=== PATIENT | male | born 1970 | race Caucasian/White ===

== ENCOUNTER 2024-03-10 21:30 | Inpatient (IN) | payer MEDICAID, SELFPAY ==
[2024-03-10] VITALS (10 sets, daily range): BP systolic 76–151; BP diastolic 54–100; PULSE 53–88; RESP 18–25; TEMP 34.4; O2SAT 97–100; BMI 25.0
--- NOTE | 2024-03-10 21:39 | XR_ITS ---
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
[2024-03-10] MEDS: ROCURONIUM INJ 10 MG/ML VIAL 10 ML 50 MG IVP (21:41)
[2024-03-10] MEDS: ETOMIDATE INJ 2 MG/ML VIAL 10 ML 20 MG IVP (21:41)
--- NOTE | 2024-03-10 21:46 | PD.EDAMS ---
Altered Mental Status RME/HPI General Chief Complaint: Altered Mental Status Stated Complaint: AMS Time Seen by Provider: 03/10/24 21:46 Arrival date/time: 03/10/24 21:30 RME / HPI RME / HPI narrative: Dr. Love?s Main ED Evaluation: 53yo male NABILA presents to the ED for a chief complaint of altered mental status. Patient was seen by me immediately upon arrival. Patient was intubated at 2141. Per EMS, patient was found down by PD surrounded by bottles of alcohol. They are not sure if he fell, but patient was noted to have trauma to his face. Blood sugar here in the ED is 155. Full ROS is unobtainable due to the patient's AMS. Related Data Home Medications ?Medication ?Instructions ?Recorded ?Confirmed Unobtainable 03/10/24 03/10/24 Allergies Allergy/AdvReac Type Severity Reaction Status Date / Time No Known Allergies Allergy Verified 03/10/24 22:20 Review of Systems Review of Systems ROS Unobtainable: unobtainable due to mental status ED Exam Narrative Physical exam: GENERAL APPEARANCE: obtunded, does not respond to painful stimuli VITALS: All vitals were reviewed and the pulse ox is 100% via ambu-bag, which is abnormal according to my interpretation. HEENT: Normocephalic, small abrasion to the right forehead, ecchymosis to the right periorbital area, less than 1 cm laceration to the left lateral eyebrow/eyelid area; pupils are 5 mm equal and reactive bilaterally, but are sluggish; proptosis bilaterally; mucous membranes pink, moist NECK: Supple LUNGS: CTABL; no wheezes, no rales, no rhonchi HEART: Regular rate, regular rhythm; normal S1, S2; no murmurs ABDOMEN: non distended; normal BS; soft, no tenderness, no guarding, no rebound; no masses, no organomegaly, no hernia BACK: no CVA tenderness : hypospadias EXTREMITIES: atraumatic; no edema NEUROLOGIC: obtunded, unresponsive SKIN: warm, dry, normal color; no rashes Course Course Course Narrative: C-Collar placed to r/o cervical injury. Intubation warranted due to the patient not protecting his airway. 2140: Rocuronium 20mg given. Etomidate 20mg given. 2140: Patient intubated. See procedure note. CXR is ordered to r/o aspiration pneumonia and for post intubation. CT cervical spine is negative for any acute findings. C-Collar removed. Quality Measures none Orders Category Date Time Status CT Screening NOW Care 03/10/24 21:48 Active EKG (ED ONLY) *Do not use* NOW Care 03/10/24 21:47 Completed Florentino [Urinary Catheter] QS Care 03/10/24 21:36 Active Insert NG / OG tube NOW Care 03/10/24 21:37 Active Intubation NOW Care 03/10/24 21:[address] cervical spine wo con Stat Exams 03/10/24 21:[address] chest abdomen pelvis w Stat Exams 03/10/24 21:[address] head/brain wo con Stat Exams 03/10/24 21:47 Completed EKG (ED Only) Stat Exams 03/10/24 21:47 Draft XR chest 1V post procedure Stat Exams 03/10/24 21:39 Completed ABG [Arterial Blood Gas] Stat Lab 03/10/24 23:26 Completed Acetaminophen Stat Lab 03/10/24 21:45 Completed Alcohol, Blood Medical Stat Lab 03/10/24 21:45 Completed B-Type Natriuretic Peptide Stat Lab 03/10/24 21:45 Completed Blood Culture (Lab) Stat Lab 03/10/24 21:50 Received CBC Stat Lab 03/10/24 21:45 Completed Comprehensive Metabolic Panel Stat Lab 03/10/24 21:45 Completed Drug Screen,Urine Stat Lab 03/10/24 21:44 Completed Free T4 (Free Thyroxine) Stat Lab 03/10/24 21:45 Completed Lactate (Lactic Acid) Stat Lab 03/10/24 21:45 Results Lipase Stat Lab 03/10/24 21:45 Completed Procalcitonin Stat Lab 03/10/24 21:45 Completed Salicylate Stat Lab 03/10/24 21:45 Completed Sputum Culture and Gram Stain Stat Lab 03/10/24 23:05 Received TSH [Thyroid Stimulating Hormone] Stat Lab 03/10/24 21:45 Completed Troponin I Stat Lab 03/10/24 21:45 Completed Urinalysis, C/S if Indicated Stat Lab 03/10/24 21:44 Completed Etomidate Inj [Amidate Inj] Med 03/10/24 21:30 Discontinued 20 mg .ROUTE .STK-MED ONE Etomidate Inj [Amidate Inj] Med 03/10/24 21:33 Discontinued 20 mg IVP X1 ONE Propofol 1,000 mg Ivpb [Diprivan Ivpb] Med 03/10/24 21:35 Active 1,000 mg in 100 ml IV 5 mcg/kg/min Rocuronium Inj [Zemuron Inj] Med 03/10/24 21:30 Discontinued 100 mg .ROUTE .STK-MED ONE Rocuronium Inj [Zemuron Inj] Med 03/10/24 21:33 Discontinued 50 mg IVP X1 ONE Sodium Chloride 0.9% 1000 ml [Ns] 1,000 ml Med 03/10/24 22:19 Discontinued IV 999 mls/hr fentaNYL 2,500 MCG/250 ML BAG [Sublimaze Inj 2,500 MCG/ Med 03/10/24 21:35 Active 250 ML BAG] 2,500 mcg in 250 ml IV 25 mcg/hr Volume Ventilator Stat RT 03/10/24 Active Vital Signs Vital signs: Vital Signs Pulse Rate 88 03/10/24 21:40 Respiratory Rate 25 H 03/10/24 21:40 Blood Pressure 151/99 H 03/10/24 21:40 Pulse Oximetry (%) 100 03/10/24 21:40 Oxygen Delivery Method Ambu-Bag 03/10/24 21:40 Procedures -ED Intubation Time out performed: No sedative: Etomidate Mg Given: 20 paralytic: Rocuronium Mg Given: 50 Laryngoscope: fiber optic video scope Assist Device Used: fiber optic device ET Tube Size: 8 ET Tube Uncuffed: No Tube Secured Depth (cm): 23 Tube Secured Location: lips Tube Placement Confirmation: visualized tube passing through cords, equal breath sounds bilaterally, no breath sounds over epigastrium and confirmation by capnometry Patient Tolerated Procedure: well and no complications Altered Mental Status MDM Narrative MDM Narrative:: Scribe Attestation: 03/10/24 Christiana Bishop am scribing for and in the presence of Dr. Love. Patient data External records reviewed:: [facility] previous records (Per chart review, patient has no previous ED visits or admissions to this facility.) Clinical information provided by:: EMS (provided history due to the patient's AMS) Social determinants that could affect healthcare access:: alcohol use (possible) Patient has the following chronic illnesses:: unknown How is presenting disease/condition affected by chronic disease/condition?: no chronic disease Evaluation data The following diagnostics were reviewed and interpreted by me:: lab results, radiology exam(s) and EKG tracing(s) Lab and/or radiology exams considered but not ordered:: none Interpretation Summary: CBC is normal, Lactate is elevated at 4.4, BNP is normal, Glucose is 149, Procalcitonin is normal, TSH and Free T4 are normal, Blood alcohol is 476.8, UA shows 1+ ketones and rare bacteria, UDS is negative, according to my interpretation. EKG done at 2202, sinus rhythm, rate of 85, normal axis, no ectopy, QRS: 133, QTc: 433, no STEMI, according to my interpretation. ----- [facility] Report Signed Patient: ADINA GARCIA Record#: [id number] Birthdate: 1970 Age/Sex: 53 / M Location: [facility] Attending Dr: Ordering Physician: Seth Love MD Date of Service: 03/10/24 Procedure(s): XR chest 1V post procedure Accession Number(s): [id number] cc: Aj Lassiter MD; Seth Love MD~ 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 Dictated By: Aj Lassiter MD Signed By: <Electronically signed by Aj Lassiter MD in OV> 03/10/242207 [facility] Report Signed Patient: ADINA GARCIA Record#: [id number] Birthdate: 1970 Age/Sex: 53 / M Location: [facility] Attending Dr: Ordering Physician: Seth Love MD Date of Service: 03/10/24 Procedure(s): CT cervical spine wo con Accession Number(s): [id number] cc: Aj Lassiter MD; Seth Love MD~ Examination: CT cervical spine without contrast 2-D sagittal reconstructions 2-D coronal reconstructions 3-D reconstructions. Exam date and time:February 29, 2024 at 1034 hrs. Indications: Patient found down unconscious obtunded today, neck pain CTDI:vol (mGy) 12.76 DLP: (mGycm) 360 Technique: Multiple 2 mm axial sections of the cervical spine have been obtained. The coronal and sagittal reconstructions have been obtained. 3-D reconstructions have been obtained. Low dose protocols were performed. One or more of the following dose reduction techniques were used; automated exposure control, adjustment of the mA and/or KV according to patient size, use of iterative reconstruction technique. Findings: Axial sections demonstrate intact base of the skull. C1 exhibit satisfactory relationship to the odontoid. No acute cervical vertebral body fracture seen. Alignment posterior spinous processes satisfactory. Impression: No acute cervical fracture. Dictated By: Aj Lassiter MD Signed By: <Electronically signed by Aj Lassiter MD in > 03/10/24 2328 [facility] Report Signed Patient: ADINA GARCIA Record#: [id number] Birthdate: 1970 Age/Sex: 53 / M Location: [facility] Attending Dr: Ordering Physician: Seth Love MD Date of Service: 03/10/24 Procedure(s): CT head/brain wo con Accession Number(s): [id number] cc: Aj Lassiter MD; Seth Love MD~ Examination: CT brain head without contrast. 2-D sagittal coronal reconstructions Date and time of exam:March 10, 2024 1032 hrs. Indications: Patient found unconscious 2 hours ago with periorbital ecchymoses CTDI: vol (mGy):54 DLP: (mGycm):1170 Technique: Multiple CT axial sections of the brain have been obtained, 5 mm slice thickness. Contrast has not been administered. 2-D sagittal, coronal reconstructions have been obtained Low dose protocols were performed. One or more of the following dose reduction techniques were used; automated exposure control, adjustment of the mA and/or KV according to patient size, use of iterative reconstruction technique. Findings: No significant ventricular enlargement. Intra-axial or extra-axial hemorrhage density is not seen. No mass effect or midline shift Basal cisterns are not remarkable. Fourth ventricle is midline. Cranial vault intact. Impression: Negative for acute hemorrhage, mass effect or midline shift Dictated By: Aj Lassiter MD Signed By: <Electronically signed by Aj Lassiter MD in OV> 03/10/24 2324 ------- [facility] Report Signed Patient: ADINA GARCIA Record#: [id number] Birthdate: 1970 Age/Sex: 53 / M [facility] Att[facility] Dr: Ordering Physician: Seth Love MD Date of Service: 03/10/24 Procedure(s): CT chest abdomen pelvis w Accession Number(s): [id number] cc: Aj Lassiter MD; Seth Love MD~ Examination: CT chest with intravenous contrast CT abdomen with intravenous contrast CT pelvis with intravenous contrast 2-D coronal and sagittal reconstructions Time of exam: March 10, 2024 1036 hrs. Indications: Patient found down unconscious today obtunded 2 hours ago CTDI: vol (mGy) : 9.21 DLP: (mGycm): 830 Technique: Multiple axial images of the chest, abdomen and pelvis with intravenous contrast, 3.0 mm slice thickness. Images obtained post intravenous injection Isovue 370 60 cc. 2-D sagittal and coronal reconstructions. Low dose protocols were performed. One or more of the following dose reduction techniques were used; automated exposure control, adjustment of the mA and/or KV according to patient size, use of iterative reconstruction technique. Findings: Thoracic aorta pulmonary arteries appear intact No pulmonary artery emboli No hemopericardium Endotracheal tube tip 4 cm above glenna COPD with bullous change in both lungs more severe left upper lobe Mild pneumonia both bases, consider aspiration pneumonia No pneumothorax Sternum thoracic vertebral bodies intact Considerable patient motion reduces rib image quality, ribs appear intact Liver mildly irregular in contour, no liver splenic or renal laceration No gallstones No pancreatic mass Orogastric tube in the stomach Abdominal aorta intact No bowel obstruction No pericecal inflammatory change No ascites Urinary bladder contracted around a Florentino catheter Hips bones of the pelvis intact, advanced degenerative disc disease L4-L5 Impression: Study is significantly degraded by continual patient motion Thoracic aorta intact No pulmonary artery emboli Tracheal tube tip 4 cm above glenna COPD with bullous disease Mild bibasilar pneumonia, consider aspiration pneumonia Suspect primary hepatocellular disease No abdominal parenchymal laceration Abdominal aorta intact, no free blood in the abdomen Dictated By: Aj Lassiter MD Signed By: <Electronically signed by Aj Lassiter MD in OV> 03/10/24 2345 Medications / Prescriptions Medications or Prescriptions considered but not ordered:: none Medication administrations:: Medication Administration History Propofol (Diprivan Ivpb) 1,000 mg in 100 mls @ 2.517 mls/hr IV .Q24H PRN; Protocol PRN Reason: PER PROTOCOL Stop: 04/09/24 21:34 Last Titration: 03/10/24 23:38 Dose: 0 mcg/kg/min, 0 mls/hr Documented By: Titration: 03/10/24 23:25 Dose: 10 mcg/kg/min, 5.035 mls/hr Documented By: Admin: 03/10/24 22:53 Dose: 5 mcg/kg/min, 2.517 mls/hr Documented By: KG Co-signed By: SF Fentanyl Citrate (Sublimaze Inj 2,500 Mcg/250 Ml Bag) 2,500 mcg in 250 mls @ 2.5 mls/hr IV .Q24H PRN; Protocol PRN Reason: PER PROTOCOL Stop: 03/15/24 21:34 Last Titration: 03/10/24 23:53 Dose: 75 mcg/hr, 7.5 mls/hr Documented By: Titration: 03/10/24 23:10 Dose: 125 mcg/hr, 12.5 mls/hr Documented By: Titration: 03/10/24 22:35 Dose: 75 mcg/hr, 7.5 mls/hr Documented By: Admin: 03/10/24 22:01 Dose: 25 mcg/hr, 2.5 mls/hr Documented By: EE Co-signed By: CVL Discontinued Medications Etomidate (Etomidate Inj 2 Mg/Ml Vial 10 Ml) 20 mg IVP X1 ONE Stop: 03/10/24 21:34 Last Admin: 03/10/24 21:41 Dose: 20 mg Documented By: EE Etomidate (Etomidate Inj 2 Mg/Ml Vial 10 Ml) Confirm Administered Dose 20 mg .ROUTE .STK-MED ONE Stop: 03/10/24 21:31 Last Admin: 03/10/24 21:49 Dose: Not Given Documented By: VERÓNICA Non-Admin Reason: Override Medication Sodium Chloride (Ns) 1,000 mls @ 999 mls/hr IV .Q1H1M ONE Stop: 03/10/24 23:19 Last Infusion: 03/10/24 23:24 Dose: Infused Documented By: Admin: 03/10/24 22:20 Dose: 999 mls/hr Documented By: KG Rocuronium [place] (Rocuronium Inj 10 Mg/Ml Vial 10 Ml) 50 mg IVP X1 ONE Stop: 03/10/24 21:34 Last Admin: 03/10/24 21:41 Dose: 50 mg Documented By: VERÓNICA Co-signed By: DUNG Rocuronium [place] (Rocuronium Inj 10 Mg/Ml Vial 10 Ml) Confirm Administered Dose 100 mg .ROUTE .STK-MED ONE Stop: 03/10/24 21:31 Last Admin: 03/10/24 21:49 Dose: Not Given Documented By: VERÓNICA Non-Admin Reason: Override Medication see above Consultations Consultation(s) initiated? (list below): Yes Consultation #1 (Physician, Specialty, Details): Discussed case with [Dr. Ca - ICU resident] from Hospitalist service regarding admission. Discussed patients ED course, exam findings, labs, and radiology results. The Hospitalist [agrees] to accept the patient for admission. Time: 00:00 Diagnosis Differential diagnosis altered mental status: alcoholic intoxication, altered mental status and other (ICH, drug intoxication) Most likely diagnosis given after review of the tests above:: see below Admission Indicated Admission indicated?: indicated Admission Request Was there a request for admission?: Yes Admission Attestation Admission request attestation: Discussed case with [] from Hospitalist service regarding admission. Discussed patients ED course, exam findings, labs, and radiology results. The Hospitalist [agrees,declines] to accept the patient for admission. Disposition Plan Disposition Plan: Admit Critical Care Time Critical Care Time Critical Care Time: Yes Total Critical Care Time (min.): 45 Attestation: The high probability of sudden, clinically significant deterioration in the patient?s condition required the highest level of my preparedness to intervene urgently. The services I provided to this patient were to treat and/or prevent clinically significant deterioration. Services included the following: chart data review, reviewing nursing notes and/or old charts, documentation time, oracle drm consultant collaboration regarding findings and treatment options, medication orders and management, direct patient care, vital sign assessments and ordering, interpreting and reviewing diagnostic studies and lab tests. Aggregate critical care time includes only time during which I was engaged in work directly related to the patient?s care, as described above, whether at bedside or elsewhere in the Emergency Department. It did not include time spent performing other reported procedures or the services of residents, students, nurses or physician assistants. Discharge Plan Plan Patient Disposition: Admit Acute Care w/in Hospital Prescriptions/Referrals Prescriptions/Med Rec: No Action Unobtainable Problem List Clinical Impression: Altered mental status, Alcohol poisoning Patient/Caregiver Discharge Instructions Print Language: Lao Stand Alone Forms: [employer] Award Info., Patient Portal Info Letter
--- NOTE | 2024-03-10 21:47 | EKG_ITS ---
[facility] Test Date: 2024-03-10 Pat Name: ADINA GARCIA Department: Room: - Gender: Male [employer]: : 1970 Requested By: Seth Elliott Order Number: [id number] Reading MD: Seth Elliott Measurements Intervals [place] Rate: 85 P: -8 AK: 117 QRS: 62 QRSD: 133 T: 71 QT: 400 QTc: 478 Interpretive Statements SINUS RHYTHM WITH SHORT AK INTERVAL INTRAVENTRICULAR CONDUCTION DELAY [130+ ms QRS DURATION] No previous ECG available for comparison /store/S0/[id number]
--- NOTE | 2024-03-10 21:50 | PC.NURSE ---
PT BIB EMS WITH C/O AMS. PER EMS WERE CALLED OUT BY [employer] WHEN THEY FOUND PT DOWN ON THE GROUND WITH TRAUMA TO THE FOREHEAD NOTED (UNSURE IF PT SUFFERED FALL), C-COLLAR PLACED ON ARRIVAL TO ER. PT WAS FOUND TO BE SURROUNDED BY ALCOHOL BOTTLES UPON EMS ARRIVAL. PT PLACED ON 6L O2 DURING TRANSPORT. PER EMS GCS 5 AND INTOXICATED. PT PRESENTED TO THE ER UNRESPONSIVE, FOAMING AT THE MOUTH, GCS 6 PT PLACED IN ROOM 4. ON CARDIAC MONITORING, DR TABARES AT BEDSIDE ASSESSING PT. PT UNABLE TO PROTECT AIRWAY, VERBAL ORDER GIVEN TO INTUBATE BY MD TABARES. VERBAL ORDERS GIVEN FOR INTUBATION MEDS IN PLACE. RT AT BEDSIDE. IV'S ESTABLISHED. SUCTION READILY AVAILABLE. PT CARE ONGOING AT THIS TIME.
[2024-03-10 21:52] LABS: Collection Type, Urine Clean Catch
[2024-03-10 21:58] LABS: Basophils # (Auto) 0.1 Thou/mm3 (0.0-0.2); Basophils % (Auto) 1 % (0-2.5); Eosinophils % (Auto) 0 % (0-10); Hematocrit 42.7 % (41.0-53.0); Hemoglobin 14.2 g/dL (13.5-16.0); Immature Granulocytes % (Auto) 0 % (0-0); Immature Granulocytes Auto 0.02 Thou/mm3 (0.00-0.00); Lymphocytes # (Auto) 1.4 Thou/mm3 (1.0-4.8); Lymphocytes % (Auto) 18 % (10-50); Mean Corpuscular HGB Conc 33.3 g/dl (31.0-37.0); Mean Corpuscular Hemoglobin 27.6 pg (25.0-35.0); Mean Corpuscular Volume 83 fL (80-100); Monocytes # (Auto) 0.8 Thou/mm3 (0.0-0.8); Monocytes % (Auto) 11 % (0-12); Neutrophils # (Auto) 5.5 Thou/mm3 (1.8-7.7); Neutrophils % (Auto) 71 % (37-80); Nucleated Red Blood Cell % 0 /100 WBC (0); Platelet Count 207 Thou/mm3 (140-440); RDW Standard Deviation 52.9 fL (35.1-43.9); Red Blood Count 5.14 Miln/mm3 (4.50-5.90); White Blood Count 7.7 Thou/mm3 (3.8-10.6)
[2024-03-10] MEDS: fentaNYL 2,500 MCG/250 ML BAG 2,500 MCG/250 ML BAG IV (22:01)
[2024-03-10 22:05] LABS: Bacteria,Urine Rare; Bilirubin,Urine Negative (Negative); Blood,Urine Negative (Negative); Clarity,Urine Clear (Clear/Hazy); Color,Urine Lt-Yellow (Lt Yel-Yel); Culture Indicated,Urine Not Indicated; Glucose, Urine Negative (Negative); Ketones,Urine 1+ (Negative); Leukocyte Esterase,Urine Negative (Negative); Nitrite,Urine Negative (Negative); PH,Urine 5.5 (5.0-7.0); Protein,Urine Negative (Neg - Trace); RBC,Urine 2 /hpf (0-3); Specific Gravity,Urine 1.011 (1.001-1.035); Squamous Epithelial Cell,Urine < 1 /hpf (0-5); Urobilinogen,Urine Negative mg/dL (0.0-1.0); WBC,Urine 1 /hpf (0-5)
[2024-03-10 22:07] LABS: Lactate (Lactic Acid) 4.4 mMol/L (0.4-2.0)
--- NOTE | 2024-03-10 22:09 | PC.NURSE ---
Assumed care of pt at this time.
[2024-03-10] MEDS: SODIUM CHLORIDE 0.9% 1000 ML 1,000 ML 999 ML IV (22:20)
[2024-03-10 22:23] LABS: B-Type Natriuretic Peptide < 20 pg/mL (0-100)
--- NOTE | 2024-03-10 22:25 | PC.NURSE ---
Pt taken to CT by myself accompanied by RT. Pt on portable monitor.
--- NOTE | 2024-03-10 22:45 | PC.NURSE ---
Pt back in room after CT scan, pt tolerated well.
[2024-03-10 22:47] LABS: Acetaminophen < 2.0 mcg/mL (10.0-20.0); Alanine Aminotransferase 34 U/L (10-49); Albumin, Serum 4.5 gm/dL (3.5-5.0); Albumin/Globulin Ratio 1.1 (1.2-2.2); Alkaline Phosphatase 88 U/L (46-116); Anion Gap 12 (7-16); Aspartate Amino Transferase 62 U/L (0-34); BUN/Creatinine Ratio 11 Ratio (12-20); Bilirubin,Total 0.2 mg/dL (0.3-1.2); Blood Urea Nitrogen 8 mg/dL (9-23); Calcium 10.1 mg/dL (8.3-10.6); Calcium (Corrected) 10.1 mg/dL (8.5-10.1); Carbon Dioxide 26.4 mMol/L (20.0-31.0); Chloride 100 mMol/L (98-107); Creatinine (Component) 0.7 mg/dL (0.6-1.3); Estimated Creatinine Clearance 132.4 mL/min (>60); Free T4 (Free Thyroxine) 1.03 ng/dL (0.89-1.76); Globulin 4.2 gm/dL (2.3-3.5); Glucose 149 mg/dL (74-106); Lipase 45 U/L (12-53); Osmolality,Calculated 276 (275-295); Potassium 3.6 mMol/L (3.4-5.1); Procalcitonin 0.08 ng/ml (0.0-0.49); Salicylate < 3.0 mg/dL; Sodium 138 mMol/L (136-145); Thyroid Stimulating Hormone 1.92 uIU/mL (0.55-4.78); Total Protein 8.7 gm/dL (5.7-8.2); Troponin I < 0.020 ng/mL (0.0-0.045); eGFR > 60 See Note
[2024-03-10 22:48] LABS: Alcohol, Blood Medical 476.8 mg/dL (0-10.0)
[2024-03-10] MEDS: PROPOFOL 1,000 MG IVPB 1,000 MG/100 ML VIAL 2.517 MG IV (22:53)
--- NOTE | 2024-03-10 23:06 | PC.NURSE ---
Pt is hypothermic. Rectal probe inserted and hooked up to monitor. Dr. adkins informed and damion johnson applied.
[2024-03-10 23:09] LABS: Amphetamine/Methamp Scrn,U Negative (Negative); Barbiturate Screen,Urine Negative (Negative); Benzodiazepines Screen,Urine Negative (Negative); Benzoylecgonine Screen, Ur Negative (Negative); Fentanyl Screen,Urine Negative (Negative); Opiate Screen,Urine Negative (Negative); THC Screen,Urine Negative (Negative)
[2024-03-10 23:32] LABS: Base Excess -1 (-3-3); HCO3 26 mEq/L (20-26); Inspired Oxygen, FIO2 100 %; O2 Saturation 101 % (91-98); PCO2 50 mmHg (32.0-48.0); PO2 538 mmHg (83-108); pH, Arterial 7.32 (7.35-7.45)
[2024-03-10 23:37] LABS: Allen Test Not Performed; Puncture Site Right Radial
--- NOTE | 2024-03-10 23:37 | PC.NURSE ---
Informed Dr. Love that pt's Bp is dropping and is now 84/60 with a MAP of 68. Verbal order received to turn off propofol at this time. also gave verbal order to remove C collar.
[2024-03-11] VITALS (90 sets, daily range): BP systolic 76–110; BP diastolic 49–74; PULSE 52–98; RESP 10–36; TEMP 34.9–37.3; O2SAT 94–100
--- NOTE | 2024-03-11 00:06 | ECHO_ITS ---
Transthoracic Echo Report Ht (in): 72 Wt (lb): 185 Exam Location: Portable Status: Preadmit Employment Clerk: Mishel Ballesteros Indications: Procedure Performed: BP: 85 / 54 HR: 65 Rhythm: Sinus Technical Quality: Technically difficult study MEASUREMENTS (Male / Female) Normal Values 2D ECHO LV Diastolic Diameter PLAX 4.9 cm 4.2 - 5.9 / 3.9 - 5.3 cm LV Systolic Diameter PLAX 3.4 cm IVS Diastolic Thickness 0.9 cm 0.6 - 1.0 / 0.6 - 0.9 cm LVPW Diastolic Thickness 1.0 cm 0.6 - 1.0 / 0.6 - 0.9 cm LV Relative Wall Thickness 0.4 LVOT Diameter 2.2 cm M-MODE Aortic Root Diameter MM 3.3 cm LA Systolic Diameter MM 2.9 cm LA Ao Ratio MM 0.9 AV Cusp Separation MM 2.2 cm DOPPLER AV Peak Velocity 128.0 cm/s AV Peak Gradient 6.6 mmHg AV Mean Gradient 4.0 mmHg AV Velocity Time Integral 28.4 cm LVOT Peak Velocity 106.0 cm/s LVOT Peak Gradient 4.5 mmHg LVOT Velocity Time Integral 22.0 cm LVOT Cardiac Index 2623.8 cm?/min?m? AV Area Cont Eq vti 2.9 cm? AV Area Cont Eq pk 3.1 cm? MV Peak Velocity 93.3 cm/s MV Peak Gradient 3.5 mmHg MV Mean Velocity 50.0 cm/s MV Mean Gradient 1.0 mmHg MV Area PHT 4.0 cm? Mitral E Point Velocity 72.3 cm/s Mitral A Point Velocity 71.8 cm/s Mitral E to A Ratio 1.0 LV E' Lateral Velocity 13.4 cm/s Mitral E to LV E' Lateral Ratio 5.4 LV E' Septal Velocity 10.4 cm/s Mitral E to LV E' Septal Ratio 7.0 FINDINGS Left Ventricle Normal left ventricular size, wall thickness, systolic function with no obvious regional wall motion abnormalities. The ejection fraction is visually estimated at 55-60%. Right Ventricle The right ventricle is normal in size and systolic function. Left Atrium The left atrium is normal by two-dimensional, color flow and Doppler imaging with no structural abnormalities, no thrombus formation present. Right Atrium The right atrium is normal by two-dimensional imaging, color flow and Doppler imaging with no struct ural abnormalities, no thrombus formation present. Atrial Septum The interatrial septum appears normal with no evidence of a shunt. Aorta The aorta is normal by two-dimensional, color flow and Doppler interrogation. Mitral Valve The mitral valve is normal by two-dimensional, color flow and Doppler interrogation. There is trace mitral valve regurgitation. Aortic Valve The aortic valve is trileaflet and normal by two-dimensional, color flow and Doppler interrogation. There is no significant aortic valve regurgitation. Tricuspid Valve The tricuspid valve is normal by two-dimensional, color flow and Doppler interrogation. There is tra ce tricuspid valve regurgitation. Pulmonic Valve The pulmonic valve is not well visualized. There is no significant pulmonic valve regurgitation. Vessels The pulmonary artery appears normal. The inferior vena cava pulmonary and hepatic veins appear renay l. Pericardium The pericardium is normal by two-dimensional imaging. There is no significant pericardial effusion. CONCLUSIONS The transthoracic study is normal by two-dimensional, color flow imaging and Doppler interrogation. Normal LV size and function. Estimated EF 55-60% Normal RV size and function. Trace mitral and trace tricuspid regurgitation Philomena Chaudhary (Electronically Signed) Final Date: 11 March 2024 14:05
[2024-03-11] MEDS: RINGERS LACTATED 1000 ML 1,000 ML 999 ML IV (00:18)
[2024-03-11] MEDS: PIPER/TAZO 3.375 GM 3.375 GM/50 ML BAG IV ×2 (00:21→06:23)
[2024-03-11 00:33] LABS: Creatine Kinase 122 U/L (34-171)
[2024-03-11 00:49] LABS: Reflex Lactate? Y
[2024-03-11] MEDS: VANCOMYCIN/NS 1 GM IVPB 200 ML IV ×2 (00:49→02:32)
[2024-03-11 01:09] LABS: Lactic Acid, 3 HR 3.4 mMol/L (0.4-2.0)
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
[2024-03-11] MEDS: Norepinephrine/D5W 8mg/250ml 8 MG/250 ML BAG 7.867 MG IV (02:25)
--- NOTE | 2024-03-11 04:00 | PC.NURSE ---
Dr. Guillen at the bedside at this time.
[2024-03-11 05:26] LABS: Base Excess -2 (-3-3); HCO3 25 mEq/L (20-26); Inspired Oxygen, FIO2 40 %; O2 Saturation 100 % (91-98); PCO2 54 mmHg (32.0-48.0); PO2 171 mmHg (83-108); pH, Arterial 7.28 (7.35-7.45)
[2024-03-11 05:27] LABS: Allen Test Performed/OK; Puncture Site Right Radial
[2024-03-11] MEDS: ALBUTEROL/IPRATROPIUM (Duoneb) RT SOL 3 ML NEBU INH ×3 (06:35→18:40)
[2024-03-11] MEDS: RINGERS LACTATED 1000 ML 1,000 ML 125 ML IV ×2 (06:43→15:42)
--- NOTE | 2024-03-11 07:15 | PC.NURSE ---
ASSUMED CARE OF PT. PT NSR ON CC MONITOR. PT SEDATED AND APPEARS IN NO APPARENT DISTRESS. 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
[2024-03-11 08:10] LABS: Basophils # (Auto) 0.1 Thou/mm3 (0.0-0.2); Basophils % (Auto) 1 % (0-2.5); Eosinophils % (Auto) 1 % (0-10); Hematocrit 34.5 % (41.0-53.0); Hemoglobin 11.3 g/dL (13.5-16.0); Immature Granulocytes % (Auto) 0 % (0-0); Immature Granulocytes Auto 0.03 Thou/mm3 (0.00-0.00); Lymphocytes # (Auto) 2.3 Thou/mm3 (1.0-4.8); Lymphocytes % (Auto) 28 % (10-50); Mean Corpuscular HGB Conc 32.8 g/dl (31.0-37.0); Mean Corpuscular Hemoglobin 27.6 pg (25.0-35.0); Mean Corpuscular Volume 84 fL (80-100); Monocytes # (Auto) 0.8 Thou/mm3 (0.0-0.8); Monocytes % (Auto) 9 % (0-12); Neutrophils # (Auto) 5.2 Thou/mm3 (1.8-7.7); Neutrophils % (Auto) 62 % (37-80); Nucleated Red Blood Cell % 0 /100 WBC (0); Platelet Count 192 Thou/mm3 (140-440); RDW Standard Deviation 55.1 fL (35.1-43.9); Red Blood Count 4.09 Miln/mm3 (4.50-5.90); White Blood Count 8.4 Thou/mm3 (3.8-10.6)
[2024-03-11 08:45] LABS: Alanine Aminotransferase 26 U/L (10-49); Albumin, Serum 3.7 gm/dL (3.5-5.0); Albumin/Globulin Ratio 1.1 (1.2-2.2); Alcohol, Blood Medical 378.1 mg/dL (0-10.0); Alkaline Phosphatase 69 U/L (46-116); Anion Gap 10 (7-16); Aspartate Amino Transferase 42 U/L (0-34); BUN/Creatinine Ratio 10 Ratio (12-20); Bilirubin,Total 0.2 mg/dL (0.3-1.2); Blood Urea Nitrogen 8 mg/dL (9-23); Calcium 8.2 mg/dL (8.3-10.6); Calcium (Corrected) 8.4 mg/dL (8.5-10.1); Chloride 107 mMol/L (98-107); Creatinine (Component) 0.8 mg/dL (0.6-1.3); Estimated Creatinine Clearance 115.9 mL/min (>60); Globulin 3.4 gm/dL (2.3-3.5); Glucose 112 mg/dL (74-106); Osmolality,Calculated 280 (275-295); Potassium 4.1 mMol/L (3.4-5.1); Sodium 141 mMol/L (136-145); Total Protein 7.1 gm/dL (5.7-8.2); eGFR > 60 See Note
--- NOTE | 2024-03-11 08:58 | PC.NURSE ---
ATTEMPTED TO CALL REPORT. NURSE WILL CALL BACK WHEN READY
--- NOTE | 2024-03-11 09:08 | PC.NURSE ---
REPORT GIVEN TO [place] ON ICU FLOOR. PT TO GO TO ROOM 251
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
[2024-03-11] MEDS: MIDAZOLAM INJ 1 MG/ML VIAL 2 ML 4 MG IV (10:11)
--- NOTE | 2024-03-11 10:29 | EKG_ITS ---
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
[2024-03-11] MEDS: HEPARIN SOD INJ 5000 UNIT/ML VIAL SC ×2 (11:29→20:14)
[2024-03-11] MEDS: PANTOPRAZOLE INJ 40 MG VIAL IVP (11:29)
[2024-03-11] MEDS: metroNIDAZOLE/NS 500 MG IVPB 500 MG/100 ML BAG 200 MG IV ×2 (11:30→21:33)
[2024-03-11] MEDS: THIAMINE 100 MG TABLET PO ×2 (11:30→20:14)
[2024-03-11] MEDS: cefTRIAXone/D5w 1gm IV premix 50 ML IV (11:30)
[2024-03-11] MEDS: FOLIC ACID 1 MG TABLET PO ×2 (11:30→20:14)
[2024-03-11] MEDS: PROPOFOL 1,000 MG IVPB 1,000 MG/100 ML VIAL 22.657 MG IV (12:59)
[2024-03-11] MEDS: VANCOMYCIN/NS 750 MG IVPB 750 MG/150 ML BAG 120 MG IV ×2 (14:01→22:21)
[2024-03-11] MEDS: PHENobarbital Inj 130 MG, SODIUM CHLORIDE 0.9% FLUSH 12 ML IVP ×2 (14:01→21:27)
[2024-03-11] MEDS: fentaNYL 2,500 MCG/250 ML BAG 2,500 MCG/250 ML BAG 22.5 MCG IV (14:35)
--- NOTE | 2024-03-11 15:42 | PD.RESEVENT ---
Documentation for date of: 03/11/24 Event Note Event Note: Patient arrived to the ICU intubated and agitated, not following commands, sedation was increased for comfort while patient was allowed to metabolize. Ethanol level decreasing as expected. Lung protective strategies on ventilator used as patient has clear signs of COPD with large bullae in the lungs. Will wean sedation and attempt to evaluate mental status through the night, CIWA protocol continued, phenobarbital loading dose given. Mild concern for bibasilar aspiration pneumonia seen on CT chest, antibiotics changed to ceftriaxone and Flagyl. Cocci labs pending as well as CK, lactic acidosis improving, blood cultures pending. Vital signs remained stable. Echocardiogram rather unremarkable normal systolic function with only trivial valvular disease.
[2024-03-11] MEDS: PROPOFOL 1,000 MG IVPB 1,000 MG/100 ML VIAL 17.622 MG IV (18:26)
[2024-03-11 21:03] LABS: Creatine Kinase 83 U/L (34-171)
[2024-03-12] VITALS (55 sets, daily range): BP systolic 90–157; BP diastolic 50–108; PULSE 67–112; RESP 9–93; TEMP 37.1–38.4; O2SAT 91–100
[2024-03-12] MEDS: RINGERS LACTATED 1000 ML 1,000 ML 125 ML IV ×3 (01:02→20:51)
[2024-03-12] MEDS: PROPOFOL 1,000 MG IVPB 1,000 MG/100 ML VIAL 22.657 MG IV (01:02)
[2024-03-12] MEDS: fentaNYL 2,500 MCG/250 ML BAG 2,500 MCG/250 ML BAG 27.5 MCG IV (01:35)
[2024-03-12] MEDS: ACETAMINOPHEN SOL 325 MG/10 ML UDC 650 MG GT ×2 (02:03→06:38)
[2024-03-12 04:46] LABS: Base Excess 2 (-3-3); HCO3 30 mEq/L (20-26); Inspired Oxygen, FIO2 35 %; O2 Saturation 99 % (91-98); PCO2 61 mmHg (32.0-48.0); PO2 114 mmHg (83-108)
[2024-03-12 04:47] LABS: Allen Test Performed/OK; Puncture Site Arterial Line
[2024-03-12] MEDS: PROPOFOL 1,000 MG IVPB 1,000 MG/100 ML VIAL 17.622 MG IV (04:53)
[2024-03-12] MEDS: PHENobarbital Inj 130 MG, SODIUM CHLORIDE 0.9% FLUSH 12 ML IVP ×2 (05:25→14:02)
[2024-03-12] MEDS: metroNIDAZOLE/NS 500 MG IVPB 500 MG/100 ML BAG 200 MG IV ×3 (05:25→21:11)
[2024-03-12 05:48] LABS: Vancomycin,Trough 11.2 mcg/mL (5.0-10.0)
[2024-03-12] MEDS: VANCOMYCIN/NS 750 MG IVPB 750 MG/150 ML BAG 120 MG IV (06:03)
[2024-03-12 06:11] LABS: Basophils % (Auto) 1 % (0-2.5); Eosinophils % (Auto) 1 % (0-10); Hematocrit 33.5 % (41.0-53.0); Hemoglobin 10.6 g/dL (13.5-16.0); Immature Granulocytes % (Auto) 0 % (0-0); Immature Granulocytes Auto 0.01 Thou/mm3 (0.00-0.00); Lymphocytes # (Auto) 1.2 Thou/mm3 (1.0-4.8); Lymphocytes % (Auto) 28 % (10-50); Mean Corpuscular HGB Conc 31.6 g/dl (31.0-37.0); Mean Corpuscular Hemoglobin 27.8 pg (25.0-35.0); Mean Corpuscular Volume 88 fL (80-100); Monocytes # (Auto) 0.5 Thou/mm3 (0.0-0.8); Monocytes % (Auto) 11 % (0-12); Neutrophils # (Auto) 2.4 Thou/mm3 (1.8-7.7); Neutrophils % (Auto) 59 % (37-80); Nucleated Red Blood Cell % 0 /100 WBC (0); Platelet Count 109 Thou/mm3 (140-440); RDW Standard Deviation 58.2 fL (35.1-43.9); Red Blood Count 3.81 Miln/mm3 (4.50-5.90); White Blood Count 4.1 Thou/mm3 (3.8-10.6)
[2024-03-12] MEDS: ALBUTEROL/IPRATROPIUM (Duoneb) RT SOL 3 ML NEBU INH (06:19)
[2024-03-12 06:39] LABS: Alanine Aminotransferase 21 U/L (10-49); Albumin, Serum 3.6 gm/dL (3.5-5.0); Albumin/Globulin Ratio 1.1 (1.2-2.2); Alkaline Phosphatase 65 U/L (46-116); Anion Gap 4 (7-16); Aspartate Amino Transferase 24 U/L (0-34); BUN/Creatinine Ratio 9 Ratio (12-20); Bilirubin,Total < 0.2 mg/dL (0.3-1.2); Blood Urea Nitrogen 6 mg/dL (9-23); Calcium 8.6 mg/dL (8.3-10.6); Calcium (Corrected) 8.9 mg/dL (8.5-10.1); Carbon Dioxide 29.9 mMol/L (20.0-31.0); Chloride 107 mMol/L (98-107); Creatinine (Component) 0.7 mg/dL (0.6-1.3); Globulin 3.3 gm/dL (2.3-3.5); Glucose 88 mg/dL (74-106); Osmolality,Calculated 277 (275-295); Potassium 4.5 mMol/L (3.4-5.1); Sodium 141 mMol/L (136-145); Total Protein 6.9 gm/dL (5.7-8.2); eGFR > 60 See Note
[2024-03-12] MEDS: cefTRIAXone/D5w 1gm IV premix 50 ML IV (08:30)
[2024-03-12] MEDS: HEPARIN SOD INJ 5000 UNIT/ML VIAL SC (08:30)
[2024-03-12] MEDS: THIAMINE 100 MG TABLET PO (08:31)
[2024-03-12] MEDS: PANTOPRAZOLE INJ 40 MG VIAL IVP (08:31)
[2024-03-12] MEDS: FOLIC ACID 1 MG TABLET PO ×2 (08:31→21:11)
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
--- NOTE | 2024-03-12 09:35 | PC.NURSE ---
per Dr. Geller, sedation titrated down per protocol, Dr. Geller notified of patients occasional agitation, Per Dr. Geller sedation left at current dose at this time
--- NOTE | 2024-03-12 10:13 | PC.SS ---
Oil Seal Assembler (SW) Flavia attempted to complete assessment. Patient remains intubated, no family contacts. SW will await until he is extubated.
--- NOTE | 2024-03-12 11:08 | PC.NURSE ---
patient extubated at [address] Rojas by RT at bedside, OG also removed per Dr. Rojas, patient extubated to 3 L NC tolerating well
[2024-03-12] MEDS: THIAMINE INJ 400 MG in SODIUM CHLORIDE 0.9% 100 ML 203.037 MG IV (11:19)
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
[2024-03-12 14:12] LABS: Cocci Serology, IgM Negative (Negative)
--- NOTE | 2024-03-12 14:54 | PD.RESEVENT ---
Documentation for date of: 03/12/24 Event Note Event Note: Humble Douglas is a 53-year-old male with a past medical history of COPD who presented to the ED fro EtOH intoxication and was intubated due to inability to protect airways. Last drink was estimated to be 48 hours ago. He was extubated today, 03/12, and care will be resumed on floors starting 03/13. Currently on 130 mg phenobarbital TID with plans to decrease to 65 mg tomorrow. Also on PRN librium and CIWA.
[2024-03-12] MEDS: ONDANSETRON INJ 2 MG/ML INJ 2 ML 4 MG IV (20:43)
[2024-03-13] VITALS (8 sets, daily range): BP systolic 113–133; BP diastolic 71–96; PULSE 70–93; RESP 16–92; TEMP 36.4–37.3; O2SAT 92–96; BMI 22.2
[2024-03-13] MEDS: metroNIDAZOLE/NS 500 MG IVPB 500 MG/100 ML BAG 200 MG IV ×3 (05:14→21:15)
[2024-03-13] MEDS: RINGERS LACTATED 1000 ML 1,000 ML 125 ML IV (05:14)
[2024-03-13 08:29] LABS: Basophils % (Auto) 0 % (0-2.5); Eosinophils % (Auto) 1 % (0-10); Hemoglobin 9.8 g/dL (13.5-16.0); Immature Granulocytes % (Auto) 0 % (0-0); Immature Granulocytes Auto 0.02 Thou/mm3 (0.00-0.00); Lymphocytes # (Auto) 0.9 Thou/mm3 (1.0-4.8); Lymphocytes % (Auto) 20 % (10-50); Mean Corpuscular HGB Conc 32.7 g/dl (31.0-37.0); Mean Corpuscular Hemoglobin 27.5 pg (25.0-35.0); Mean Corpuscular Volume 84 fL (80-100); Monocytes # (Auto) 0.3 Thou/mm3 (0.0-0.8); Monocytes % (Auto) 6 % (0-12); Neutrophils # (Auto) 3.3 Thou/mm3 (1.8-7.7); Neutrophils % (Auto) 72 % (37-80); Nucleated Red Blood Cell % 0 /100 WBC (0); Platelet Count 83 Thou/mm3 (140-440); Red Blood Count 3.57 Miln/mm3 (4.50-5.90); White Blood Count 4.5 Thou/mm3 (3.8-10.6)
[2024-03-13 09:00] LABS: Alanine Aminotransferase 17 U/L (10-49); Albumin, Serum 3.3 gm/dL (3.5-5.0); Albumin/Globulin Ratio 1.1 (1.2-2.2); Alkaline Phosphatase 59 U/L (46-116); Anion Gap 6 (7-16); Aspartate Amino Transferase 33 U/L (0-34); BUN/Creatinine Ratio 10 Ratio (12-20); Bilirubin,Total 0.6 mg/dL (0.3-1.2); Blood Urea Nitrogen < 5 mg/dL (9-23); Calcium 8.7 mg/dL (8.3-10.6); Calcium (Corrected) 9.3 mg/dL (8.5-10.1); Chloride 100 mMol/L (98-107); Creatinine (Component) 0.5 mg/dL (0.6-1.3); Estimated Creatinine Clearance 177.7 mL/min (>60); Globulin 3.1 gm/dL (2.3-3.5); Glucose 80 mg/dL (74-106); Osmolality,Calculated 268 (275-295); Potassium 3.4 mMol/L (3.4-5.1); Sodium 136 mMol/L (136-145); Total Protein 6.4 gm/dL (5.7-8.2); eGFR > 60 See Note
[2024-03-13] MEDS: PANTOPRAZOLE INJ 40 MG VIAL IVP (09:58)
[2024-03-13] MEDS: cefTRIAXone/D5w 1gm IV premix 50 ML IV (09:58)
[2024-03-13] MEDS: FOLIC ACID 1 MG TABLET PO ×2 (10:00→20:46)
[2024-03-13] MEDS: THIAMINE 100 MG TABLET 500 MG PO (10:00)
[2024-03-13] MEDS: HEPARIN SOD INJ 5000 UNIT/ML VIAL SC (10:00)
--- NOTE | 2024-03-13 11:59 | PC.SS ---
Jorgito Kate is 53 year old male. SS met with patient at bedside to complete initial assessment and to discuss discharge planning. Patient appeared to be alert and oriented. Patient confirmed demographic information, he reports his mother Katie Douglas is surrogate decision maker [phone] . Pt states prior to hospitalization he was is able to complete all ADL?s independently, however is requesting a FWW. Patient reports he does not have PCP. Patient will return home, mother will provide transportation. DC Plan: Home Next of Kin: Mother, Katie Douglas [phone] PCP: Dr. Carlos Burch
--- NOTE | 2024-03-13 12:03 | PC.SS ---
Addendum entered by Carey Reaves 03/13/24 14:57: SS follow up note; [facility] will submit for auth for FWW and contact patient once approved. Original Note: SS follow up note; SS attempted to provide ETOH resources however patient refused.
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
[2024-03-13 13:32] LABS: Cocci Serology, IgG Negative (Negative)
--- NOTE | 2024-03-13 14:47 | PC.SS ---
SS follow up note; SS was informed by PT that patient was needing a FWW. SS submitted DME referral through [facility]. No accepting DME company yet.
--- NOTE | 2024-03-13 15:06 | PC.SS ---
SS follow up note; ICU down grade, discharge in 1-2 days.
[2024-03-14] VITALS (9 sets, daily range): BP systolic 111–142; BP diastolic 74–81; PULSE 56–71; RESP 16–95; TEMP 36.1–36.8; O2SAT 95–96; BMI 22.4
[2024-03-14] MEDS: metroNIDAZOLE/NS 500 MG IVPB 500 MG/100 ML BAG 200 MG IV ×3 (05:16→22:07)
[2024-03-14 08:11] LABS: Basophils % (Auto) 0 % (0-2.5); Eosinophils # (Auto) 0.1 Thou/mm3 (0.0-0.5); Eosinophils % (Auto) 2 % (0-10); Hematocrit 29.3 % (41.0-53.0); Hemoglobin 9.9 g/dL (13.5-16.0); Immature Granulocytes % (Auto) 0 % (0-0); Immature Granulocytes Auto 0.01 Thou/mm3 (0.00-0.00); Lymphocytes # (Auto) 1.1 Thou/mm3 (1.0-4.8); Lymphocytes % (Auto) 29 % (10-50); Mean Corpuscular HGB Conc 33.8 g/dl (31.0-37.0); Mean Corpuscular Volume 83 fL (80-100); Monocytes # (Auto) 0.3 Thou/mm3 (0.0-0.8); Monocytes % (Auto) 8 % (0-12); Neutrophils # (Auto) 2.2 Thou/mm3 (1.8-7.7); Neutrophils % (Auto) 61 % (37-80); Nucleated Red Blood Cell % 0 /100 WBC (0); Platelet Count 85 Thou/mm3 (140-440); RDW Standard Deviation 50.9 fL (35.1-43.9); Red Blood Count 3.53 Miln/mm3 (4.50-5.90); White Blood Count 3.6 Thou/mm3 (3.8-10.6)
[2024-03-14] MEDS: PHENobarbitaL 32.4 MG TABLET 64.8 MG PO (08:23)
[2024-03-14] MEDS: THIAMINE 100 MG TABLET 500 MG PO (08:23)
[2024-03-14] MEDS: POTASSIUM CHLORIDE 10% 20 MEQ/15 ML UDC 40 MEQ PO (08:23)
[2024-03-14] MEDS: PANTOPRAZOLE INJ 40 MG VIAL IVP (08:23)
[2024-03-14] MEDS: FOLIC ACID 1 MG TABLET PO ×2 (08:24→20:03)
[2024-03-14] MEDS: cefTRIAXone/D5w 1gm IV premix 50 ML IV (08:24)
[2024-03-14 08:32] LABS: Alanine Aminotransferase 15 U/L (10-49); Albumin, Serum 3.5 gm/dL (3.5-5.0); Albumin/Globulin Ratio 1.1 (1.2-2.2); Alkaline Phosphatase 57 U/L (46-116); Anion Gap 9 (7-16); Aspartate Amino Transferase 35 U/L (0-34); BUN/Creatinine Ratio 10 Ratio (12-20); Bilirubin,Total 0.6 mg/dL (0.3-1.2); Blood Urea Nitrogen < 5 mg/dL (9-23); Calcium 8.6 mg/dL (8.3-10.6); Carbon Dioxide 27.2 mMol/L (20.0-31.0); Chloride 100 mMol/L (98-107); Creatinine (Component) 0.5 mg/dL (0.6-1.3); Estimated Creatinine Clearance 178.9 mL/min (>60); Globulin 3.2 gm/dL (2.3-3.5); Glucose 82 mg/dL (74-106); Osmolality,Calculated 268 (275-295); Potassium 3.2 mMol/L (3.4-5.1); Sodium 136 mMol/L (136-145); Total Protein 6.7 gm/dL (5.7-8.2); eGFR > 60 See Note
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
[2024-03-15] VITALS: BP 145/86; PULSE 58; RESP 20; TEMP 36.3; O2SAT 95
[2024-03-15 04:00] VITALS: BP 130/88; PULSE 58; RESP 16; TEMP 36.8; O2SAT 95
[2024-03-15] MEDS: metroNIDAZOLE/NS 500 MG IVPB 500 MG/100 ML BAG 200 MG IV (05:35)
[2024-03-15 05:59] LABS: Magnesium 1.5 mg/dL (1.6-2.6)
[2024-03-15 07:04] VITALS: PULSE 78; RESP 20; RESP 21; RESP 95; O2SAT 95
[2024-03-15 08:00] VITALS: BP 143/91; PULSE 56; RESP 18; TEMP 36.3; O2SAT 96
[2024-03-15] MEDS: cefTRIAXone/D5w 1gm IV premix 50 ML IV (08:20)
[2024-03-15] MEDS: PANTOPRAZOLE INJ 40 MG VIAL IVP (08:20)
[2024-03-15] MEDS: FOLIC ACID 1 MG TABLET PO (08:20)
[2024-03-15 08:43] LABS: Basophils % (Auto) 0 % (0-2.5); Eosinophils # (Auto) 0.1 Thou/mm3 (0.0-0.5); Eosinophils % (Auto) 2 % (0-10); Hematocrit 30.7 % (41.0-53.0); Hemoglobin 10.2 g/dL (13.5-16.0); Immature Granulocytes % (Auto) 0 % (0-0); Immature Granulocytes Auto 0.01 Thou/mm3 (0.00-0.00); Lymphocytes # (Auto) 1.2 Thou/mm3 (1.0-4.8); Lymphocytes % (Auto) 31 % (10-50); Mean Corpuscular HGB Conc 33.2 g/dl (31.0-37.0); Mean Corpuscular Hemoglobin 27.7 pg (25.0-35.0); Mean Corpuscular Volume 83 fL (80-100); Monocytes # (Auto) 0.3 Thou/mm3 (0.0-0.8); Monocytes % (Auto) 9 % (0-12); Neutrophils # (Auto) 2.3 Thou/mm3 (1.8-7.7); Neutrophils % (Auto) 58 % (37-80); Nucleated Red Blood Cell % 0 /100 WBC (0); Platelet Count 90 Thou/mm3 (140-440); RDW Standard Deviation 50.4 fL (35.1-43.9); Red Blood Count 3.68 Miln/mm3 (4.50-5.90); White Blood Count 3.9 Thou/mm3 (3.8-10.6)
[2024-03-15 08:44] LABS: Alanine Aminotransferase 10 U/L (10-49); Albumin, Serum 3.5 gm/dL (3.5-5.0); Alkaline Phosphatase 57 U/L (46-116); Anion Gap 11 (7-16); Aspartate Amino Transferase 32 U/L (0-34); BUN/Creatinine Ratio 8 Ratio (12-20); Bilirubin,Total 0.4 mg/dL (0.3-1.2); Blood Urea Nitrogen < 5 mg/dL (9-23); Calcium 8.6 mg/dL (8.3-10.6); Carbon Dioxide 22.2 mMol/L (20.0-31.0); Chloride 106 mMol/L (98-107); Creatinine (Component) 0.6 mg/dL (0.6-1.3); Estimated Creatinine Clearance 149.1 mL/min (>60); Globulin 3.4 gm/dL (2.3-3.5); Glucose 89 mg/dL (74-106); Osmolality,Calculated 273 (275-295); Potassium 3.2 mMol/L (3.4-5.1); Sodium 139 mMol/L (136-145); Total Protein 6.9 gm/dL (5.7-8.2); eGFR > 60 See Note
[2024-03-15] MEDS: Magnesium Sulfate 4 GM Ivpb 4 GM/50 ML BAG IV (09:17)
[2024-03-15] MEDS: POTASSIUM CHLORIDE 20 mEq TABCR 40 MEQ PO (09:17)
--- NOTE | 2024-03-15 10:50 | PC.NURSE ---
Discharge orders placed, infusing 4g of mag at this time. Finish magnesium and the discharge. Due to complete at 1530.
[2024-03-15 12:00] VITALS: BP 135/85; PULSE 60; RESP 18; TEMP 36.4; O2SAT 96
--- NOTE | 2024-03-15 12:48 | ESDS_ITS ---
<Statement entered by All Cortez MD - 03/15/24 16:09> I attest that I was physically present for the evaluation, physical examination, lab and imaging review of the patient with the residents. I discussed the case with the residents and agree with the findings and plans of care as documented above. At bedside, patient stated he is feeling well and does not have any complaints. Was able to tolerate his diet well. He received his last dose of phenobarbital yesterday morning, and does not have any withdrawal symptoms. Patient deemed stable for discharge to home. Advised on cessation of alcohol and smoking, resources were provided by case management. We will continue oral antibiotic for 2 more days for aspiration pneumonia. Patient advised to follow-up with his PCP in 1 to 2 weeks following his discharge. All Cortez MD <Statement entered by Jeramy Sanchez MD - 03/15/24 16:05> I saw and examined the patient, and I agree with current management stated by Dr Terry MD,PGY1. Plan of care was discussed with the attending physician and resident physician. Disclaimer: Despite multiple revisions, due to the dictation software being used, the document bellow may not be free of grammatical errors including phonetic/typographic errors. However, this does not deter from our commitment to providing health care in the patient's best interest in mind. Dr. Daniel MD, PGY 2 Planned Discharge Date 03/15/24 DS: Providers Provider Date of admission: 03/11/24 00:02 Primary care physician: Physician No Primary/Family Admitting Provider: Marlon Guillen MD Attending Provider on Admission: All Cortez MD Consults: 03/11/24 16:58 Referral Wound Care Routine Comment: 03/13/24 08:00 Referral Physical Therapy Routine Comment: Physician Instructions: Attending Provider on DC: Svitlana Stewart MD Discharging Provider: Svitlana Stewart MD DS: Diagnosis Problem List Completed Was Problem List Reviewed/Reconciled?: Yes Hospital Course Hospital Course Hospital course: Summary: Patient is a 53-year-old male with a past medical history of alcohol use disorder, alcohol intoxication, history of COPD, still an active smoker who was directly admitted into ICU as patient cannot protect his airway and is found unconscious by police department. Patient had an elevated lactic acid and CT head was negative. Pneumonia, possible aspiration, noted on CT treated with antibiotics. Patient was extubated on 03/12/2024 and hospital team resumed care. ER Course: On arrival in the emergency room patient had an elevated blood pressure 151/99, increased respiratory rate at 25, heart rate 88 and saturating at 100% on ambulatory back from EMS. Lactic acid of 3.4, blood alcohol of 476.8, with negative CT head, and CT Abdomen showing pneumonia, likely secondary to aspiration pneumonia. Patient was intubated. Hospital Course: Internal medicine team resume patient's care on 03/13/2024 after patient was extubated on 03/12/2024. Patient was tapered off phenobarbital for alcohol intoxication and withdrawal symptoms. On floors patient CIWA score continued to be 0. CIWA with Ativan on board but no Ativan given. Patient was started on high-dose thiamine and folate. Patient was treated empirically for aspiration pneumonia with ceftriaxone and Flagyl. Sputum cultures grew mixed pravin and initial blood culture on 03/10/2024 grew gram-positive cocci 1 out of the 2 bottles. Repeat obtained on 03/13/2024 showed no growth after 48 hours on 03/15/2023. Patient was placed on DuoNebs for COPD as noted on chest x-ray. Instructions: -Please continue amoxicillin-clavulanate once per day for pneumonia for two more additional days -Please continue folic acid and thiamine for vitamins -Please continue albuterol (rescue inhaler) 2 puffs as needed for COPD -Please follow up with your primary care provider within 1 week of discharge -If your symptoms worsen,please seek immediate medical attention and return to your nearest emergency room -If you do not have a primary care provider, you may follow up at the [facility] at [address] [place] [address] [address], [place] [address] Disposition: Home #Aspiration Pneumonia, improved. #Alcohol Use Disorder #Acute encephalopathy, resolved #Alcohol intoxication, resolved #COPD #Tobacco Use Disorder #Facial contusion secondary to fall - The patient's plan was discussed with attending Dr. Cortez and senior residents Dr. Daniel Stewart MD PGY1 Internal Medicine Time Spent with Patient Time attestation: Total time spent providing and/or coordinating discharge services: at least 35 minutes Exam Vital Signs Temp Pulse Resp BP Pulse Ox O2 Del Method O2 Flow Rate 97.5 F 60 18 135/85 H 96 Room Air 2 03/15/24 12:00 03/15/24 12:00 03/15/24 12:00 03/15/24 12:00 03/15/24 12:00 03/15/24 12:00 03/12/24 12:00 FiO2 35 03/12/24 09:34 Narrative Exam General Appearance: Alert & Oriented X3, well-nourished male who is lying in bed in no acute distress HEENT: Skull symmetrical and atraumatic. Conjunctivae pin and moist. Pupils equal, round, reactive to light and accommodation (PERRL). External ear without lesion or discharge. Straight, nares patient, mucosa pink, no discharge. No thyroid nodule appreciated. No cervical lymphadenopathy. Cardio: Normal Rate and Rhythm with S1 and S2 heart sounds. No murmurs or extra heart sounds auscultated. No bruits on carotid auscultation. No peripheral edema or cyanosis. Lungs: Symmetric with good expansion. Chest and back non-tender. Breath sounds vesicular without crackles, wheezing or rhonchi Abdomen: Non-tender, Non-distended, Normal Reactive Bowel Sounds Neuro: Alert, cooperative, oriented to person, place, and time. Speech clear. CN grossly intact. Upper motor strength 5/5 and Lower motor strength 5/5. Sensation intact. Discharge Plan Plan Patient Disposition: HOME (Self Care) Patient condition on transfer: Stable Care Plan Goals: Instructions: -Please continue amoxicillin-clavulanate once per day for pneumonia for two more additional days -Please continue folic acid and thiamine for vitamins -Please continue albuterol (rescue inhaler) 2 puffs as needed for COPD -Please follow up with your primary care provider within 1 week of discharge -If your symptoms worsen,please seek immediate medical attention and return to your nearest emergency room -If you do not have a primary care provider, you may follow up at the [facility] at [address], [place] [address] -Disposition: Home Prescriptions/Referrals Prescriptions/Med Rec: New folic acid 1 mg Tablet 1 mg PO BID 30 Days Qty: 60 0RF thiamine mononitrate (vit B1) 100 mg tablet 100 mg PO QDAY 30 Days Qty: 30 0RF amoxicillin-pot clavulanate 875-125 mg tablet 1 tab PO BID 2 Days Qty: 4 0RF albuterol sulfate 90 mcg/actuation HFA aerosol inhaler 1 inh inhalation QID PRN (Reason: shortness of breath or wheezing) Qty: 6.7 0RF Referrals: No Primary/Family,Physician [Primary Care Provider] - Patient/Caregiver Discharge Instructions Education Materials: Alcoholism Resources, Alcohol Withdrawal: What to Expect, Addiction: Getting Help, Addiction: Your Treatment Options, Addiction Recovery Counseling Print Language: Serbian Stand Alone Forms: [employer] Award Info., Patient Portal Info Letter Discharge Order Discharge Orders: Discharge (Routine); Ordered 03/15/24 Ordered By: Jeramy Sanchez Quality Discharge Quality Measures VTE prophylaxis
== END 2024-03-15 14:38 | disposition home or self-care (01) | DRG 775 ==
LOC: SERX 03-11 00:15 → SERHOLD 03-11 07:29 → S2SX 03-11 11:09 → S3SX 03-13 10:05 → S2SX 03-13 10:05 → SERHOLD 03-13 10:05
PROVIDERS: Student in an Organized Health Care Education/Training Program; Admitting Provider Internal Medicine; Emergency Provider Emergency Medicine; Visit Provider Student in an Organized Health Care Education/Training Program
DX: F10.929 Alcohol use, unspecified with intoxication, unspecified (principal); J69.0 Pneumonitis due to inhalation of food and vomit; Y90.8 Blood alcohol level of 240 mg/100 ml or more; F10.939 Alcohol use, unspecified with withdrawal, unspecified; S00.11XA Contusion of right eyelid and periocular area, initial encounter; I95.9 Hypotension, unspecified; J44.9 Chronic obstructive pulmonary disease, unspecified; T51.0X1A Toxic effect of ethanol, accidental (unintentional), initial encounter; G92.8 Other toxic encephalopathy; J96.01 Acute respiratory failure with hypoxia; S00.83XA Contusion of other part of head, initial encounter; E87.6 Hypokalemia; S00.81XA Abrasion of other part of head, initial encounter; F17.210 Nicotine dependence, cigarettes, uncomplicated; W19.XXXA Unspecified fall, initial encounter
CPT/HCPCS: 36415; 36600; 70450; 71045; 71260; 72125; 74177; 80053; 80202; 80307; 80320; 80329; 81001; 82550; 82803; 83605; 83690; 83735; 83880; 84145; 84439; 84443; 84484; 85025; 86331; 86635; 87040; 87077; 87081; 87086; 87186; 87205; 87811; 93005; 93306; 94002; 94003; 94640; 96360; 96361; 96365; 96366; 96367; 97162; 99291; A4216; A4649; A9270; J0696; J1643; J2250; J2405; J2470; J2543; J2560; J2704; J3010; J3370; J3411; J3475; J3490; J7030; J7050; J7120; Q9967; G0480; J1644; J1836

== ENCOUNTER 2024-05-28 02:11 | Emergency (ER) | payer MEDICAID, SELFPAY ==
[2024-05-28 02:21] VITALS: BP 150/103; PULSE 79; RESP 18; TEMP 36.9; O2SAT 97
--- NOTE | 2024-05-28 02:41 | PD.EDMEDCL ---
ED Medical Clearance RME/HPI General Chief complaint: Medical Clearance Stated complaint: MEDICAL CLEARANCE Time Seen by Provider: 05/28/24 02:40 Source: patient and police Arrival date/time: 05/28/24 02:11 Mode of arrival: ambulatory Limitations: no limitations RME / HPI RME / HPI Narrative: Dr. Love?s Main ED Evaluation: 54-year-old male brought in by [place] [employer] who presents to ED for medical clearance for incarceration. Patient is obviously intoxicated. Denies any medical complaints. No pain overall. MD complaint: medical clearance requested Related Information Previous Rx's ?Medication ?Instructions ?Recorded albuterol sulfate 90 mcg/actuation 1 inh inhalation QID PRN shortness 03/15/24 aerosol inhaler of breath or wheezing #6.7 grams Allergies Allergy/AdvReac Type Severity Reaction Status Date / Time No Known Allergies Allergy Verified 03/10/24 22:20 Review of Systems Review of Systems Systems Reviewed: All systems reviewed, normal except as documented Past Medical History Past Medical History CARDIAC: Negative Cardiac Disorders RESPIRATORY: Negative Asthma HEMATOLOGIC: Negative Sickle Cell Disease Social History SMOKING STATUS: Smoker, status unknown ED Exam Narrative Physical exam: Patient is sitting up in the chair with his hands cuffed to the back. General Limitations: Present no limitations General appearance: Present alert, in no apparent distress, appears intoxicated and other (Dried blood on face from a resolved nosebleed. No active bleeding.) Head Head exam: Present atraumatic Eye Eye exam: Present normal appearance, PERRL and EOMI ENT ENT exam: Present normal exam, normal oropharynx and mucous membranes moist Neck Neck exam: Present normal inspection, full ROM and trachea midline Chest Chest inspection: Present normal inspection and symmetric chest wall rise Respiratory Respiratory exam: Present normal lung sounds bilaterally Cardiovascular Cardiovascular exam: Present regular rate, normal rhythm and normal heart sounds Abdominal Exam Abdominal exam: Present soft and normal bowel sounds Extremities Exam Extremities exam: Present normal inspection and full ROM Back Exam Back exam: Present normal inspection and full ROM Neurological Exam Neurological exam: Present alert, oriented X3 and CN II-XII intact Psychiatric Psychiatric exam: Present normal affect and normal mood Skin Skin exam: Present warm, dry, intact and normal color Course Quality Measures none Vital Signs Vital signs: Vital Signs Temperature 98.5 F 05/28/24 02:21 Pulse Rate 79 05/28/24 02:21 Respiratory Rate 18 05/28/24 02:21 Blood Pressure 150/103 H 05/28/24 02:21 Pulse Oximetry (%) 97 05/28/24 02:21 Oxygen Delivery Method Room Air 05/28/24 02:21 Medical Clearance MDM Narrative MDM Narrative:: Scribe Attestation: I, Eric Espinal, am scribing for and in the presence of Dr. Love. Provider Notation: Although this document has been carefully reviewed, there may still be some phonetic and other typographical errors. These errors are purely grammatical due to imperfections in the software program and should not be construed in any way to compromise the substance of the patient's medical care during this visit. Patient data External records reviewed:: [facility] previous records and Other (specify) (police report) Clinical information provided by:: patient and law enforcement Social determinants that could affect healthcare access:: none Patient has the following chronic illnesses:: see PMH How is presenting disease/condition affected by chronic disease/condition?: uneffected by Evaluation data The following diagnostics were reviewed and interpreted by me:: other (specify) (na) Lab and/or radiology exams considered but not ordered:: na Interpretation Summary: na Medications / Prescriptions Medications or Prescriptions considered but not ordered:: na Medication administrations:: na Consultations Consultation(s) initiated? (list below): No Diagnosis Medical Clearance Differential Diagnosis: other (Facial contusion, Concussion, Epistaxis) Most likely diagnosis given after review of the tests above:: Epistaxis, Contusion of face Admission Indicated Admission indicated?: not indicated Admission Request Was there a request for admission?: No Disposition Plan Disposition Plan: Discharge Discharge Attestation Discharge Attestation: The patient and all family members were given an opportunity to ask questions and understood the discharge instructions. Discharge instructions specifically effects, indications for sooner follow up or return to the emergency department, and the expected course of current diagnosis. Patient condition: Stable Discharge Plan Plan Patient Disposition: Correction/Court/Law Disposition Comment: Stable for discharge into police custody Patient condition on transfer: Stable Prescriptions/Referrals Prescriptions/Med Rec: No Action albuterol sulfate 90 mcg/actuation HFA aerosol inhaler 1 inh inhalation QID PRN (Reason: shortness of breath or wheezing) Qty: 6.7 0RF Referrals: [facility] [Outside] - In 1 week Problem List Clinical Impression: Epistaxis, Contusion of face Patient/Caregiver Discharge Instructions Discharge Activity: activity as tolerated Education Materials: ED Epistaxis (Adult), ED Facial Contusion Additional Instructions: Please return to the emergency department if you have any worsening or any further medical problems. Otherwise you should follow-up with your primary care doctor or in the family [facility] clinic within the next several days Print Language: Armenian Stand Alone Forms: [employer] Award Info., Patient Portal Info Letter
[2024-05-28 02:56] VITALS: RESP 18
== END 2024-05-28 02:56 ==
LOC: SERX 04:09
PROVIDERS: Emergency Provider Emergency Medicine
DX: Z02.89 Encounter for other administrative examinations (principal); R04.0 Epistaxis; S00.83XA Contusion of other part of head, initial encounter; X58.XXXA Exposure to other specified factors, initial encounter
CPT/HCPCS: 99281

== ENCOUNTER 2024-08-27 23:20 | Emergency (ER) | payer MEDICAID, SELFPAY ==
--- NOTE | 2024-08-27 23:37 | XR_ITS ---
Examination: CT lumbar spine, without contrast. 2-D sagittal reconstructions. 2-D coronal reconstructions. 3-D reconstructions. Date and time of exam:August 28, 2024 at 0036 hours INDICATIONS: Patient fell today with injury to lower back, lower back pain CTDI: vol (mGy):19.3 DLP: (mGycm):512 Technique: Multiple 1.25 mm axial sections of the lumbar spine without intravenous contrast have been obtained. 2-D sagittal and coronal reconstructions have been obtained. 3-D reconstructions have been obtained. Low dose protocols were performed. One or more of the following dose reduction techniques were used; automated exposure control, adjustment of the mA and/or KV according to patient size, use of iterative reconstruction technique. Findings: Adequate alignment lumbar vertebral bodies on the lateral view No lumbar vertebral body compression fracture Lumbar pedicles, laminae transverse and posterior spinous processes intact Advanced degenerative disc disease L4-L5 with anterior osteophyte formation No spondylolisthesis L5-S1 5 mm central lumbar disc bulge contiguous with the left S1 nerve root L4-L5 moderate overall spinal stenosis, axial image 81, 4 mm L4-L5 moderate overall spinal stenosis including 4 mm central lumbar disc bulge facet arthropathy and thickening of ligamentum flavum IMPRESSION: No acute lumbar fracture. Advanced degenerative disc disease L4-L5 L5-S1 5 mm central lumbar disc bulge contiguous with the left S1 nerve root. L4-L5 moderate overall spinal stenosis
--- NOTE | 2024-08-27 23:37 | XR_ITS ---
Examination: CT cervical spine without contrast 2-D sagittal reconstructions 2-D coronal reconstructions 3-D reconstructions. Exam date and time:August 28, 2024 0029 hours INDICATIONS: Ground-level fall today with injury to the neck, neck pain CTDI:vol (mGy) 14.7 DLP: (mGycm) 334 Technique: Multiple 2 mm axial sections of the cervical spine have been obtained. The coronal and sagittal reconstructions have been obtained. 3-D reconstructions have been obtained. Low dose protocols were performed. One or more of the following dose reduction techniques were used; automated exposure control, adjustment of the mA and/or KV according to patient size, use of iterative reconstruction technique. Findings: Axial sections demonstrate intact base of the skull. C1 exhibit satisfactory relationship to the odontoid. No acute cervical vertebral body fracture seen. Alignment posterior spinous processes satisfactory Significant degenerative disc disease C4-C5, C5-C6, C6-C7 Impression: No acute cervical fracture.
--- NOTE | 2024-08-27 23:37 | XR_ITS ---
Examination: CT brain head without contrast. 2-D sagittal coronal reconstructions Date and time of exam:August 28, 2024 0029 hours INDICATIONS: Patient fell today with injury to head, head pain CTDI: vol (mGy):15.2 DLP: (mGycm):1024 Technique: Multiple CT axial sections of the brain have been obtained, 5 mm slice thickness. Contrast has not been administered. 2-D sagittal, coronal reconstructions have been obtained Low dose protocols were performed. One or more of the following dose reduction techniques were used; automated exposure control, adjustment of the mA and/or KV according to patient size, use of iterative reconstruction technique. Findings: No significant ventricular enlargement. Intra-axial or extra-axial hemorrhage density is not seen. No mass effect or midline shift Basal cisterns are not remarkable. Fourth ventricle is midline. Cranial vault intact. Bilateral nasal bone fractures Impression: Negative for acute hemorrhage, mass effect or midline shift
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
[2024-08-27 23:38] VITALS: BP 119/69; PULSE 86; PULSE 92; RESP 17; RESP 20; TEMP 36.8; O2SAT 94; O2SAT 95
--- NOTE | 2024-08-27 23:42 | XR_ITS ---
Examination: CT maxillofacial, without intravenous contrast. 2-D sagittal reconstructions. 3-D reconstructions. Date and time of exam:August 28, 2024 at 0029 hours INDICATIONS: Ground-level fall today with injury to the face, facial pain CTDI: vol (mGy):23.9 DLP: (mGycm):423 Technique: Multiple axial images of maxillofacial region, 3.0 mm slice thickness. 2-D sagittal and coronal reconstructions. 3-D reconstructions. Low dose protocols were performed. One or more of the following dose reduction techniques were used; automated exposure control, adjustment of the mA and/or KV according to patient size, use of iterative reconstruction technique. Findings: Frontal bone is intact Bilateral nasal bone fractures age indeterminate Fracture anterior nasal septum Orbital rims intact Small fractures off the maxillary spine axial image 45 Mandible is intact IMPRESSION: Bilateral nasal bone fractures age-indeterminate Fracture anterior nasal septum Acute small fractures off the maxillary spine.
[2024-08-27] MEDS: DIPHTH,PERTUSS(ACELL),TET VAC 0.5 ML SYR- ADULT IMi (23:57)
[2024-08-28 00:15] LABS: Basophils % (Auto) 1 % (0-2.5); Eosinophils % (Auto) 1 % (0-10); Hematocrit 38.3 % (41.0-53.0); Hemoglobin 14.4 g/dL (13.5-16.0); Immature Granulocytes % (Auto) 0 % (0-0); Immature Granulocytes Auto 0.02 Thou/mm3 (0.00-0.00); Lymphocytes # (Auto) 1.6 Thou/mm3 (1.0-4.8); Lymphocytes % (Auto) 32 % (10-50); Mean Corpuscular HGB Conc 37.6 g/dl (31.0-37.0); Mean Corpuscular Hemoglobin 30.4 pg (25.0-35.0); Mean Corpuscular Volume 81 fL (80-100); Monocytes # (Auto) 0.5 Thou/mm3 (0.0-0.8); Monocytes % (Auto) 9 % (0-12); Neutrophils % (Auto) 58 % (37-80); Nucleated Red Blood Cell % 0 /100 WBC (0); Platelet Count 155 Thou/mm3 (140-440); RDW Standard Deviation 45.3 fL (35.1-43.9); Red Blood Count 4.73 Miln/mm3 (4.50-5.90); White Blood Count 5.1 Thou/mm3 (3.8-10.6)
[2024-08-28 00:27] LABS: Prothrombin Time 10.9 Seconds (9.0-12.2)
[2024-08-28 00:31] LABS: Ammonia 25 uMol/L (11-32)
[2024-08-28 00:32] LABS: Alanine Aminotransferase 18 U/L (10-49); Albumin, Serum 4.2 gm/dL (3.5-5.0); Albumin/Globulin Ratio 1.4 (1.2-2.2); Alkaline Phosphatase 81 U/L (46-116); Anion Gap 14 (7-16); Aspartate Amino Transferase 35 U/L (0-34); BUN/Creatinine Ratio 6 Ratio (12-20); Bilirubin,Total 0.3 mg/dL (0.3-1.2); Blood Urea Nitrogen < 5 mg/dL (9-23); Calcium 8.7 mg/dL (8.3-10.6); Calcium (Corrected) 8.7 mg/dL (8.5-10.1); Carbon Dioxide 22.7 mMol/L (20.0-31.0); Chloride 95 mMol/L (98-107); Creatine Kinase 168 U/L (34-171); Creatinine (Component) 0.8 mg/dL (0.6-1.3); Globulin 3.1 gm/dL (2.3-3.5); Glucose 184 mg/dL (74-106); Lipase 32 U/L (12-53); Osmolality,Calculated 266 (275-295); Potassium 3.2 mMol/L (3.4-5.1); Sodium 132 mMol/L (136-145); Total Protein 7.3 gm/dL (5.7-8.2); Troponin I < 0.020 ng/mL (0.0-0.045); eGFR > 60 See Note
--- NOTE | 2024-08-28 01:25 | PRELIM_ITS ---
CT scan of the head without intravenous contrast (axial sections with sagittal and coronal reformats) August 28, 2024 0029 hours Clinical History: Trauma Comparison: No prior study is available for comparison. Findings: No evidence of acute intracranial hemorrhage, mass effect or midline shift. The ventricles and CSF spaces are unremarkable. The mastoid air cells and the visualized paranasal sinuses are clear.There are acute nondisplaced bilateral nasal bone fractures (axial images 39/46 ). Impression: No evidence of acute intracranial hemorrhage, midline shift . Acute nondisplaced bilateral nasal bone fractures. Report Electronically Signed By: Artemio Ackerman 08/28/2024 1:25:04 AM [EST]
--- NOTE | 2024-08-28 01:33 | PRELIM_ITS ---
CT maxillofacial without intravenous contrast (axial sections with sagittal and coronal reformats). August 28, 2024 0029 hours Clinical History: Trauma Comparison: No prior study is available for comparison. Findings: There is an acute minimally displaced right nasal bone fracture with adjacent soft tissue swelling. There is an acute fracture of nasal septum and deviation of the nasal septum towards the right. The maxillary sinus and orbital mello are intact. No fluid levels are seen.There are small retention cysts in the both maxillary sinuses. No evidence of intraorbital hematoma, proptosis, globe injury or radiodense foreign body. The zygomatic arches and mandible are intact. Impression: Acute minimally displaced right nasal bone fracture with adjacent soft tissue swelling. Acute displaced fracture of nasal septum and deviation of the nasal septum towards the right Other findings as described above. Report Electronically Signed By: Artemio Ackerman 08/28/2024 1:33:09 AM [EST]
--- NOTE | 2024-08-28 01:55 | PRELIM_ITS ---
CT scan of the cervical spine without intravenous contrast (axial sections with sagittal and coronal reformats). August 28, 2024 0029 hours Clinical history: Trauma Comparison: No prior study is available for comparison. Findings: There is no acute fracture or subluxation. There is grade 1 anterolisthesis of C4 over C5 vertebra , likely degenerative.There is multilevel degenerative disc, uncovertebral and facet joint disease, predominantly at theC4-5 level and C5-6 level causing moderate spinal canal and moderate neural foraminal narrowing. The prevertebral soft tissues are unremarkable.There are emphysematous bullae at the lung apices bilaterally. Impression: No evidence of acute fracture or subluxation. Moderate degenerative changes as described. Other findings as described above. Report Electronically Signed By: Artemio Ackerman 08/28/2024 1:53:57 AM [EST]
--- NOTE | 2024-08-28 01:59 | PRELIM_ITS ---
CT scan of the lumbar spine without intravenous contrast (axial sections with sagittal and coronal reformats) August 28, 2024 0034 hours Clinical History: Trauma Comparison: No prior study is available for comparison. Findings: There is no acute fracture or subluxation.There is straightening of the lumbar lordosis, which may be due to muscle spasm or patient position. There are disc osteophyte complexes at multiple levels, most marked at the L4-5 level, with associated facet arthropathy causing mild spinal canal stenosis and bilateral neural foraminal stenosis. The soft tissues are unremarkable. Impression: No evidence of acute fracture, subluxation or significant soft tissue injury. Degenerative changes as described above. Report Electronically Signed By: Artemio Ackerman 08/28/2024 1:58:52 AM [EST]
[2024-08-28] MEDS: POTASSIUM CHLORIDE 20 mEq TABCR 40 MEQ PO (02:23)
[2024-08-28] MEDS: RINGERS LACTATED 1000 ML 1,000 ML 999 ML IV (02:29)
[2024-08-28 02:30] VITALS: BP 124/80; PULSE 69; RESP 18; TEMP 36.8; O2SAT 95
--- NOTE | 2024-08-28 02:32 | PC.NURSE ---
[facility] CALLED FOR POSSIBLE ENT TRANSFER, SPOKE WITH NANCI, SHE WILL CALL BACK
[2024-08-28 03:02] LABS: Collection Type, Urine Clean Catch; Squamous Epithelial Cell,Urine 0 /hpf (0-5)
[2024-08-28 03:16] LABS: Amorphous Crystals,Urine Present (Absent); Bacteria,Urine Rare; Bilirubin,Urine Negative (Negative); Blood,Urine Negative (Negative); Clarity,Urine Clear (Clear/Hazy); Color,Urine Lt-Yellow (Lt Yel-Yel); Culture Indicated,Urine Not Indicated; Glucose, Urine Negative (Negative); Ketones,Urine Negative (Negative); Leukocyte Esterase,Urine Negative (Negative); Nitrite,Urine Negative (Negative); Protein,Urine Negative (Neg - Trace); RBC,Urine 1 /hpf (0-3); Specific Gravity,Urine 1.007 (1.001-1.035); Urobilinogen,Urine Negative mg/dL (0.0-1.0); WBC,Urine < 1 /hpf (0-5)
--- NOTE | 2024-08-28 04:48 | PC.NURSE ---
THIS PT IS ACCEPTED FOR OUTPATIENT F/U TO THE [facility] BY DR. TR DOMINGUEZ AND TO HAVE AN APPT ONE WEEK FROM TODAY. [facility] WAS THE FACILITY REP OI SPOKE WITH FOR THIS INFORMATION.
[2024-08-28] MEDS: AMOXICILLIN/POT CLAV 875 TABLET 1 TAB PO (04:57)
[2024-08-28 07:00] VITALS: BP 110/76; PULSE 89; RESP 18; O2SAT 95
== END 2024-08-28 08:12 | disposition home or self-care (01) ==
PROVIDERS: Emergency Provider Emergency Medicine; PCP Family Medicine
DX: S02.2XXA Fracture of nasal bones, initial encounter for closed fracture (principal); S02.401A Maxillary fracture, unspecified side, initial encounter for closed fracture; S01.81XA Laceration without foreign body of other part of head, initial encounter; S39.92XA Unspecified injury of lower back, initial encounter; S19.9XXA Unspecified injury of neck, initial encounter; F10.20 Alcohol dependence, uncomplicated; M51.360 Other intervertebral disc degeneration, lumbar region with discogenic back pain only; M50.121 Cervical disc disorder at C4-C5 level with radiculopathy; J44.9 Chronic obstructive pulmonary disease, unspecified; F17.210 Nicotine dependence, cigarettes, uncomplicated; W19.XXXA Unspecified fall, initial encounter; Y90.9 Presence of alcohol in blood, level not specified; Z23 Encounter for immunization
CPT/HCPCS: 36415; 70450; 70486; 71045; 72125; 72131; 80053; 81001; 82140; 82550; 83690; 84484; 85025; 85610; 90471; 90715; 93005; 96360; 99284; J7120; A9270